=== PATIENT | female | born 2000 | race Caucasian/White ===

== ENCOUNTER 2024-07-20 04:25 | Emergency (ER) | payer OTHER ==
[2024-07-20 04:44] VITALS: BP 125/74; PULSE 88; RESP 18; TEMP 98; BMI 25.4
[2024-07-20] MEDS ORDERED: predniSONE 20 MG TABLET (UD) ONE (05:31)
[2024-07-20] MEDS ORDERED: diphenhydrAMINE HCL 25 MG CAPSULE (FP) PO ONE (05:31)
[2024-07-20] MEDS: predniSONE 20 MG TABLET (UD) PO ONE (05:46)
[2024-07-20] MEDS: diphenhydrAMINE HCL 50 MG CAPSULE PO ONE (05:46)
[2024-07-20 06:40] LABS: BASO % 0.5 % (0-2.0); HEMATOCRIT 42.6 % (32.4-45.2); HEMOGLOBIN 14.1 GM/dL (10.7-15.3); LYMPH % 18.9 % (8-40); MCH 29.9 pg (25.7-33.7); MEAN CELL VOLUME 90.6 fl (80-96); MEAN PLT VOLUME 8.9 fl (7.5-11.1); MONO % 6.6 % (3.8-10.2); PLATELET COUNT 283 10^3/uL (134-434); RBC 4.71 M/mm3 (3.60-5.2); RDW 12.5 % (11.6-15.6); WHITE BLOOD COUNT 14.1 K/mm3 (4.0-10.0)
[2024-07-20 06:56] LABS: POTASSIUM 4.1 mmol/L (3.5-5.1)
[2024-07-20 06:58] LABS: CALCIUM 9.4 mg/dL (8.5-10.1)
[2024-07-20 06:59] LABS: ALBUMIN 4.2 g/dl (3.4-5.0); BLOOD UREA NITROGEN 19.9 mg/dL (7-18)
[2024-07-20 07:02] LABS: CREATININE 0.8 mg/dL (0.55-1.3)
[2024-07-20 07:04] LABS: BILIRUBIN,TOTAL 0.4 mg/dL (0.2-1)
== END 2024-07-20 07:07 | disposition home or self-care (01) ==
LOC: JER 04:25
DX: K11.20 Sialoadenitis, unspecified (principal); R22.0 Localized swelling, mass and lump, head
CPT/HCPCS: 36415; 70490-TC; 80053; 84703; 85025; 99284-25